=== PATIENT | female | born 1950 | race Caucasian/White ===

== ENCOUNTER 2016-04-09 22:16 | Emergency (ER) | payer MEDICARE, MEDICAID ==
[~2016-04-09] VITALS: Ht 152.4 cm; Wt 82.5 kg
[~2016-04-09 22:16] MED LIST: CLON.5 PO; LISI-515 PO; ROXI30TA14 PO
[2016-04-09 22:18] VITALS: BP 163/101; PULSE 89; RESP 20; TEMP 98.2; O2SAT 96
[2016-04-09] MEDS ORDERED: SULFAMETHOXAZOLE-TRIMETHOPRIM DS 800-160 MG TAB PO ONE (23:00)
[2016-04-09] MEDS ORDERED: TETANUS/DIPHTHERIA TOXOID ADULT 0.5 ML VIAL IM ONE (23:00)
--- NOTE | 2016-04-09 23:01 | PD ---
HPI Chief Complaint: Skin Problem Time Seen by Provider: 22:52 Travel History International Travel<30 days: No Contact w/Intl Traveler<30days: No Traveled to known affect area: No History of Present Illness HPI 65-year-old female presents to the emergency room for evaluation of left arm redness, pain, and swelling that started 5 days ago after being scratched by a dog. Patient states she has been washing the area with hydrogen peroxide, soap , water, and keeping it covered with a dressing. She has been applying Neosporin but states the redness has continued despite these interventions. Denies significant drainage. Denies some pharyngitis, fever, chills, nausea, and vomiting. Last tetanus was in 1993. Patient reports history of hypertension and has not taken her medications tonight. PFSH Past Medical History Hx Anticoagulant Therapy: No Asthma: Yes Blood Disorders: No Anxiety: Yes Depression: Yes Heart Rhythm Problems: Yes (FEELS PALPITATIONS) Cancer: No Cardiovascular Problems: Yes (Palpitations) High Cholesterol: No Chemotherapy: No Chest Pain: No Congestive Heart Failure: No COPD: No Cerebrovascular Accident: No Diabetes: No Diminished Hearing: No Endocrine: No Gastrointestinal Disorders: No Genitourinary: No Hypertension: Yes Immune Disorder: No Implanted Vascular Access Dvce: No Musculoskeletal: Yes (BULGING DISCS IN L1&2, ROTATOR CUFF PAIN) Neurologic: No Psychiatric: Yes (DEPRESSION, ANXIETY) Reproductive: No Respiratory: Yes (Asthma/Bronchitis (IN THE PAST, NONE RECENTLY)) Immunizations Current: No Radiation Therapy: No Sleep Apnea: No Thyroid Disease: No Tetanus Vaccination: > 5 Years ?: Not Menopausal: Yes Past Surgical History Abdominal Surgery: Yes (CHOLECYSTECTOMY) AICD: No Cholecystectomy: Yes Hysterectomy: No Joint Replacement: No Pacemaker: No Other Surgery: Yes (LASER EYE SURGERY) Social History Alcohol Use: No (OCC) Tobacco Use: Yes (1 PPD) Substance Use: No Allergies-Medications (Allergen,Severity, Reaction): Coded Allergies: Morphine (Verified Adverse Reaction, Mild, ABD. CRAMPING, 04/09/16) Reported Meds & Prescriptions Reported Meds & Active Scripts Active Reported Lisinopril 20 Mg Tab 20 Mg PO DAILY Klonopin (Clonazepam) 0.5 Mg Tab 0.5 Mg PO BID Roxicodone (Oxycodone HCl) 30 Mg Tab 20 Mg PO Q12HR Review of Systems Except as stated in HPI: all other systems reviewed are Neg Physical Exam Narrative GENERAL: Well-nourished, well-developed female in no acute distress. Afebrile. Ambulatory. SKIN: Warm and dry. There is a 4 cm superficial scratch/abrasion to the left posterior forearm. No drainage. No impetiginization. There is an 8 x 8 cm area of inflammation/erythema. HEAD: Normocephalic. EYES: No scleral icterus. No injection or drainage. NECK: Supple, trachea midline. No JVD or lymphadenopathy. EXTREMITY: Tenderness to palpation of the left posterior forearm. Full range of motion in all joints. No edema. 2+ radial pulse. Radial, ulnar, and median nerves intact. Data Data Last Documented VS Vital Signs Date Time Temp Pulse Resp B/P Pulse Ox O2 Delivery O2 Flow Rate FiO2 04/09/16 22:18 98.2 89 20 163/101 96 MDM Medical Decision Making Medical Screen Exam Complete: Yes Emergency Medical Condition: Yes Medical Record Reviewed: Yes Differential Diagnosis Cellulitis versus abscess versus contusion versus abrasion Narrative Course 65-year-old female presents to the emergency room for evaluation of left posterior forearms redness, pain, and subjective swelling that has been worsening over the past 5 days. Symptoms started after she was scratched by a dog's nail. Physical exam reveals a superficial abrasion with 8 x 8 cm of surrounding inflammation. Patient has very thin skin. No lymphangitis. Area outlined and purple marker. Tetanus was updated. She was given her first dose of Bactrim in the emergency room. Discharged with wound care instructions and prescription for Bactrim. Told to follow up with a primary care physician or return for worsening symptoms. She understands and agrees to plan. Diagnosis Primary Impression: Cellulitis of left upper extremity Referrals: Primary Care Physician Patient Instructions: Cellulitis (ED), General Instructions Additional Instructions: Rest and drink plenty of fluids. Take Bactrim as directed, until gone. Follow up with a primary care physician. Return to emergency room for worsening symptoms, as discussed. Med/Other Pt SpecificInfo: Prescription(s) given Disposition: 01 DISCHARGE HOME Condition: Stable Bev Jarvis Apr 09, 2016 23:01
[2016-04-09] MEDS ORDERED: BACT800T5 PO (23:02)
== END 2016-04-09 23:09 | disposition home or self-care (01) ==
LOC: PHEFT 22:16
DX: L03.114 Cellulitis of left upper limb (principal); Z23 Encounter for immunization; Y93.K9 Activity, other involving animal care; X58.XXXA Exposure to other specified factors, initial encounter; I10 Essential (primary) hypertension
CPT/HCPCS: 90471; 90714

== ENCOUNTER 2016-11-07 23:35 | Emergency (ER) | payer MEDICARE, MEDICAID ==
[~2016-11-07] VITALS: Ht 152.4 cm; Wt 78.5 kg
[~2016-11-07 23:35] MED LIST changes: +BACT800T5 PO
[2016-11-07 23:37] VITALS: BP 163/87; PULSE 74; RESP 16; TEMP 98.2; O2SAT 96
== END 2016-11-08 00:30 | disposition left against medical advice (07) ==
LOC: PHED 23:35
DX: M25.561 Pain in right knee (principal)
CPT/HCPCS: 99281

== ENCOUNTER 2017-03-05 20:05 | Emergency (ER) | payer MEDICARE, MEDICAID ==
[~2017-03-05] VITALS: Ht 152.4 cm; Wt 47.2 kg
[2017-03-05 20:32] VITALS: BP 144/60; PULSE 80; RESP 18; TEMP 98.1; O2SAT 95
== END 2017-03-05 22:11 | disposition left against medical advice (07) ==
LOC: PHED 20:05
DX: M25.561 Pain in right knee (principal); R22.41 Localized swelling, mass and lump, right lower limb; Z53.21 Procedure and treatment not carried out due to patient leaving prior to being seen by health care provider
CPT/HCPCS: 99281

== ENCOUNTER 2017-03-06 16:34 | Emergency (ER) | payer MEDICARE, MEDICAID ==
[~2017-03-06] VITALS: Ht 152.4 cm; Wt 71.0 kg
[2017-03-06 16:35] VITALS: BP 98/58; PULSE 79; RESP 12; TEMP 98.5; O2SAT 97
--- NOTE | 2017-03-06 17:48 | PD ---
HPI . Right lower leg pain Chief Complaint: Pain: Acute or Chronic Time Seen by Provider: 17:10 Travel History International Travel<30 days: No Contact w/Intl Traveler<30days: No Traveled to known affect area: No History of Present Illness HPI This patient presents with atraumatic right lower leg pain for the last 3 days. It is also swollen. She rates the pain 5/10. She states that she has a history of osteoarthritis of both knees. She is a smoker. PFSH Past Medical History Hx Anticoagulant Therapy: No Asthma: Yes Blood Disorders: No Anxiety: Yes Depression: Yes Heart Rhythm Problems: Yes (FEELS PALPITATIONS) Cancer: No Cardiovascular Problems: Yes High Cholesterol: No Chemotherapy: No Chest Pain: No Congestive Heart Failure: No COPD: No Cerebrovascular Accident: No Diabetes: No Diminished Hearing: No Endocrine: No Gastrointestinal Disorders: No Genitourinary: No Hypertension: Yes Immune Disorder: No Implanted Vascular Access Dvce: No Musculoskeletal: Yes (BULGING DISCS IN L1&2, ROTATOR CUFF PAIN) Neurologic: No Psychiatric: Yes (DEPRESSION, ANXIETY) Reproductive: No Respiratory: Yes (Asthma/Bronchitis (IN THE PAST, NONE RECENTLY)) Immunizations Current: No Radiation Therapy: No Sleep Apnea: No Thyroid Disease: No Menopausal: Yes Past Surgical History Abdominal Surgery: Yes (FATTY TUMOR REMOVED) AICD: No Cholecystectomy: Yes Hysterectomy: No Joint Replacement: No Pacemaker: No Other Surgery: Yes (LASER EYE SURGERY) Social History Alcohol Use: No Tobacco Use: Yes (04/06 PPD) Substance Use: No Allergies-Medications (Allergen,Severity, Reaction): Coded Allergies: morphine (Unverified Adverse Reaction, Mild, ABD. CRAMPING, 03/06/17) Reported Meds & Prescriptions Reported Meds & Active Scripts Active Bactrim DS (Sulfamethoxazole-Trimethoprim) 800-160 Mg Tab 1 Tab PO BID Reported Lisinopril 20 Mg Tab 20 Mg PO DAILY Klonopin (Clonazepam) 0.5 Mg Tab 0.5 Mg PO BID Roxicodone (Oxycodone HCl) 30 Mg Tab 20 Mg PO Q12HR Review of Systems Except as stated in HPI: all other systems reviewed are Neg Musculoskeletal: Positive: Myalgias, Arthralgias, Edema Physical Exam Narrative GENERAL: Awake and alert and in no acute distress. SKIN: Warm and dry. No discoloration of the skin of the right lower extremity. Normal skin temperature. HEAD: Normocephalic/atraumatic. EYES: Pupils are equal. Extraocular movements are intact. NECK: Normal range of motion. CARDIOVASCULAR: Regular rate and rhythm. RESPIRATORY: Nonlabored respirations. MUSCULOSKELETAL: Atraumatic. Diffuse right calf tenderness. NEUROLOGICAL: Nonfocal. PSYCHIATRIC: Appropriate mood and affect. Data Data Last Documented VS Vital Signs Date Time Temp Pulse Resp B/P (MAP) Pulse Ox O2 Delivery O2 Flow Rate FiO2 03/06/17 16:57 18 03/06/17 16:35 98.5 79 98/58 (71) 97 Orders Orders Us Leg Venous Doppler (03/06/17 17:10) [facility] Medical Decision Making Medical Screen Exam Complete: Yes Emergency Medical Condition: Yes Medical Record Reviewed: Yes (medical history significant for hypertension and basal cell carcinoma of her face, chronic low back pain, chronic neck pain and osteoarthritis of both knees.) Differential Diagnosis Differential diagnosis of leg pain includes but is not limited to lumbar radiculopathy, arthritis, myalgias, DVT, ruptured Simms's cyst. Narrative Course This patient presents with atraumatic right lower leg pain for the last 3 days. She is a smoker. Ultrasound is pending rule out DVT. Last Impressions Lower Extremity Ultrasound 03/06/17 1710 Signed Impressions: Service Date/Time: Monday, March 06, 2017 18:37 - CONCLUSION: No venous thrombosis of the right lower extremity. Eliseo Molina MD Diagnosis Primary Impression: Pain in right lower leg Patient Instructions: General Instructions, Leg Pain (ED) Disposition: 01 DISCHARGE HOME Condition: Stable Lou Villalpando MD Mar 06, 2017 17:48
--- NOTE | 2017-03-06 19:01 | RADRPT ---
EXAM DATE/TIME: 03/06/2017 18:37 [facility] COMPARISON: No previous studies available for comparison. INDICATIONS : Right leg pain. MEDICAL HISTORY : Hypertension. Cataracts. Asthma. Depression. Anxiety. SURGICAL HISTORY : Cholecystectomy. section. Fatty tumor removed. Rotator cuff repair. ENCOUNTER: Initial ACUITY: 1 week PAIN SCORE: 2/10 LOCATION: Right leg. TECHNIQUE: Venous ultrasound of the leg was performed from the inguinal ligament to the proximal calf. Real-french e, color Doppler and spectral tracing, compression and augmentation techniques were used. FINDINGS: There is normal compressibility of the deep venous system from the inguinal region to the proximal ca lf. No echogenic clot is seen in the lumen of the common femoral, femoral, popliteal, and posterior tibial veins. There is a normal response of the venous system to proximal and distal augmentation an d respiration. CONCLUSION: No venous thrombosis of the right lower extremity. Eliseo Molina MD on March 06, 2017 at 18:58 Board Certified Radiologist. This report was verified electronically.
== END 2017-03-06 19:10 | disposition home or self-care (01) ==
LOC: NEPD 16:34
DX: M79.661 Pain in right lower leg (principal); M17.0 Bilateral primary osteoarthritis of knee; J45.909 Unspecified asthma, uncomplicated; I10 Essential (primary) hypertension; F17.210 Nicotine dependence, cigarettes, uncomplicated
CPT/HCPCS: 93971; 99284